=== PATIENT | male | born 1940 | race Two or more races ===

== ENCOUNTER → 2024-09-21 | Outpatient (CLI) | payer MEDICARE, MEDICAID, SELFPAY ==
--- NOTE | 2024-09-21 10:04 | XR_ITS ---
Examination: PA lateral chest 2 views TECHNIQUE: Upright PA lateral chest 2 views Exam date and time: September 21, 2024 1019 hours Comparison August 18, 2021 INDICATIONS: Injury to the left chest one week ago with left rib pain FINDINGS: Normal heart size No pneumothorax Moderate osteopenia Clavicles ribs thoracic vertebral bodies appear intact Moderate hyperexpansion IMPRESSION: No pneumothorax pulmonary contusion or hemothorax
--- NOTE | 2024-09-21 10:04 | XR_ITS ---
Examination: Ribs, left, with PA chest, 4 views Technique: Chest PA, RIBS AP, RPO, LPO 4 views Exam date and time: September 21, 2024 1021 hours INDICATIONS: Injury to the left chest one week ago with left rib pain Findings: Normal heart size No pneumothorax Prominent osteopenia No acute rib fractures depicted IMPRESSION: No pneumothorax No acute rib fractures depicted
== END | disposition home or self-care (01) ==
PROVIDERS: PCP Nurse Practitioner Family; Referring Provider Nurse Practitioner Family; Visit Provider Nurse Practitioner Family
DX: S29.9XXA Unspecified injury of thorax, initial encounter (principal); X58.XXXA Exposure to other specified factors, initial encounter
CPT/HCPCS: 71046; 71101